=== PATIENT | female | born 1940 | race Caucasian/White ===

== ENCOUNTER 2023-11-04 08:10 | Inpatient (IN) ==
[2023-11-04] MEDS ORDERED: IOPAMIDOL 100 ML BOTTLE IV ONE (08:11)
[2023-11-04] MEDS: 0.9 % SODIUM CHLORIDE 500 ML IV ONE (08:36)
[2023-11-04 09:13] LABS: Basophils # (Auto) 0.03 K/mcL (0.00-0.30); Basophils % (Auto) 0.2 % (0.0-2.0); Eosinophils # (Auto) 0.17 K/mcL (0.00-0.70); Eosinophils % (Auto) 1.2 % (0.0-7.0); Hematocrit 40.9 % (34.1-44.9); Lymphocytes # (Auto) 3.14 K/mcL (1.50-4.80); Lymphocytes % (Auto) 21.6 % (15.5-49.0); Mean Cell Volume 95.1 fL (80.0-100.0); Mean Corpuscular HGB Conc 31.8 g/dL (31.0-36.0); Mean Platelet Volume 8.6 fL (8.8-12.5); Monocytes % (Auto) 6.2 % (1.0-12.0); Neutrophils % (Auto) 70.7 % (38.0-78.0); Platelet Count 417 K/mcL (140-440); Red Cell Distribution Width 13.2 % (11.5-14.5); WBC 14.6 K/mcL (4.5-11.0)
[2023-11-04 09:28] LABS: ALT/SGPT 8 U/L (<40); AST/SGOT 14 U/L (<32); Albumin 3.6 gm/dL (3.2-5.2); Albumin/Globulin Ratio 1.2 (1.0-2.3); Alkaline Phosphatase 111 U/L (39-117); Bilirubin,Total 0.6 mg/dL (0.1-1.0); Blood Urea Nitrogen 14 mg/dL (8-23); Calcium 8.7 mg/dL (8.6-10.4); Carbon Dioxide 24 mmol/L (22-30); Chloride 101 mmol/L (96-108); Glomerular Filtration Rate 69; Glucose 175 mg/dL (70-105)
[2023-11-04] MEDS: PANTOPRAZOLE 40 MG VIAL IV ONE (11:19)
[2023-11-04 12:00] LABS: Hematocrit 38.8 % (34.1-44.9); Hemoglobin 12.3 g/dL (11.2-15.7)
[2023-11-04 13:28] LABS: Basophils # (Auto) 0.03 K/mcL (0.00-0.30); Basophils % (Auto) 0.2 % (0.0-2.0); Eosinophils # (Auto) 0.21 K/mcL (0.00-0.70); Eosinophils % (Auto) 1.5 % (0.0-7.0); Hematocrit 39.8 % (34.1-44.9); Hemoglobin 12.7 g/dL (11.2-15.7); Lymphocytes # (Auto) 3.12 K/mcL (1.50-4.80); Lymphocytes % (Auto) 22.5 % (15.5-49.0); Mean Cell Volume 94.3 fL (80.0-100.0); Mean Corpuscular HGB Conc 31.9 g/dL (31.0-36.0); Mean Platelet Volume 8.3 fL (8.8-12.5); Monocytes # (Auto) 0.91 K/mcL (0.10-0.90); Monocytes % (Auto) 6.6 % (1.0-12.0); Neutrophils % (Auto) 69.1 % (38.0-78.0); Platelet Count 398 K/mcL (140-440); RBC 4.22 M/mcL (3.59-5.38); Red Cell Distribution Width 13.2 % (11.5-14.5); WBC 13.9 K/mcL (4.5-11.0)
[2023-11-04 14:05] LABS: Prothrombin Time 13.6 sec (11.9-14.5)
[2023-11-04] MEDS: PANTOPRAZOLE 80 MG in 0.9 % SODIUM CHLORIDE 100 ML IV SCH ×2 (18:03→18:49)
[2023-11-04] MEDS: 0.9 % SODIUM CHLORIDE 1,000 ML IV SCH (18:03)
[2023-11-04] MEDS: PEG 3350/NA SULF,BICARB,CL/KCL 4,000 ML ORAL.SOL PO ONE (18:06)
[2023-11-04 18:54] LABS: Hematocrit 39.9 % (34.1-44.9); Hemoglobin 13.4 g/dL (11.2-15.7)
[2023-11-04] MEDS: 0.9 % SODIUM CHLORIDE 250 ML IV SCH (19:53)
[2023-11-04] MEDS: PEG 3350/NA SULF,BICARB,CL/KCL 4,000 ML ORAL.SOL PT ONE (21:15)
[2023-11-05 01:00] LABS: Hematocrit 39.1 % (34.1-44.9); Hemoglobin 12.5 g/dL (11.2-15.7)
[2023-11-05 06:35] LABS: Hematocrit 38.2 % (34.1-44.9)
[2023-11-05 07:34] LABS: ALT/SGPT 5 U/L (<40); AST/SGOT 14 U/L (<32); Albumin 3.1 gm/dL (3.2-5.2); Albumin/Globulin Ratio 1.1 (1.0-2.3); Alkaline Phosphatase 98 U/L (39-117); Bilirubin,Direct < 0.2 mg/dL (0-0.3); Bilirubin,Total 0.7 mg/dL (0.1-1.0); Blood Urea Nitrogen 7 mg/dL (8-23); Calcium 8.1 mg/dL (8.6-10.4); Carbon Dioxide 25 mmol/L (22-30); Chloride 105 mmol/L (96-108); Globulin 2.7 gm/dL (2.2-3.7); Glomerular Filtration Rate 81; Glucose 72 mg/dL (70-105); Lactate Dehydrogenase 112 U/L (135-225); Phosphorous 2.6 mg/dL (2.5-4.5); Triglycerides 83 mg/dL (<150); Uric Acid 3.8 mg/dL (2.5-8.0)
[2023-11-05] MEDS: LISINOPRIL 5 MG TABLET PO SCH (08:38)
[2023-11-05] MEDS: FLUoxetine HCL 20 MG CAPSULE PO SCH (08:38)
[2023-11-05 12:46] LABS: Hemoglobin 11.9 g/dL (11.2-15.7)
[2023-11-05] MEDS: MAGNESIUM CITRATE 300 ML ORAL.SOL PO ONE ×2 (14:19→21:20)
[2023-11-05 18:30] LABS: Appearance,Urine Clear (Clear); Bacteria,Urine Many /hpf (0); Bilirubin,Urine Negative (Negative); Color,Urine Yellow; Culture Indicated,Urine Yes; Glucose,Urine (UA) Negative (Negative); Ketones,Urine 15 mg/dL (Negative); Leukocyte Esterase,Urine Moderate /uL (Negative); Nitrate,Urine Positive (Negative); Protein,Urine Trace mg/dL (Negative); Specific Gravity,Urine 1.025 (1.000-1.035); Urine Blood Moderate ery/mcL (Negative); Urine RBC 6 /hpf (0-3); Urine Squamous Epithelial Cell 1 /hpf (0-4); Urine WBC 25 /hpf (0-4); Urobilinogen,Urine Normal
[2023-11-05 18:57] LABS: Hemoglobin A1C 6.7 % Hgb (4.0-6.0)
[2023-11-05] MEDS: BISACODYL 5 MG TABLET PO ONE (23:00)
[2023-11-06 06:58] LABS: ALT/SGPT 6 U/L (<40); AST/SGOT 14 U/L (<32); Albumin 3.3 gm/dL (3.2-5.2); Albumin/Globulin Ratio 1.2 (1.0-2.3); Alkaline Phosphatase 106 U/L (39-117); Bilirubin,Direct 0.2 mg/dL (<0.3); Bilirubin,Total 0.8 mg/dL (0.1-1.0); Blood Urea Nitrogen 6 mg/dL (8-23); Calcium 8.2 mg/dL (8.6-10.4); Carbon Dioxide 22 mmol/L (22-30); Chloride 105 mmol/L (96-108); Globulin 2.8 gm/dL (2.2-3.7); Glomerular Filtration Rate 81; Glucose 81 mg/dL (70-105); Lactate Dehydrogenase 145 U/L (135-225); Phosphorous 2.5 mg/dL (2.5-4.5); Triglycerides 62 mg/dL (<150); Uric Acid 3.9 mg/dL (2.5-8.0)
[2023-11-06 07:26] LABS: Basophils # (Auto) 0.05 K/mcL (0.00-0.30); Basophils % (Auto) 0.4 % (0.0-2.0); Eosinophils # (Auto) 0.42 K/mcL (0.00-0.70); Eosinophils % (Auto) 3.5 % (0.0-7.0); Hematocrit 39.1 % (34.1-44.9); Lymphocytes % (Auto) 22.2 % (15.5-49.0); Mean Cell Volume 97.3 fL (80.0-100.0); Mean Corpuscular HGB Conc 30.7 g/dL (31.0-36.0); Mean Platelet Volume 8.7 fL (8.8-12.5); Monocytes # (Auto) 0.87 K/mcL (0.10-0.90); Monocytes % (Auto) 7.1 % (1.0-12.0); Neutrophils % (Auto) 66.7 % (38.0-78.0); Platelet Count 353 K/mcL (140-440); RBC 4.02 M/mcL (3.59-5.38); Red Cell Distribution Width 12.9 % (11.5-14.5); WBC 12.2 K/mcL (4.5-11.0)
[2023-11-06] MEDS ORDERED: LIDOCAINE 2% PF 5 ML VIAL ONE (08:38)
[2023-11-06] MEDS ORDERED: PROPOFOL 200 MG/20 ML VIAL IV ONE (08:38)
[2023-11-06] MEDS ORDERED: IPRATROPIUM/ALBUTEROL 3 ML AMPUL.NEB NEB PRN (09:00)
[2023-11-06] MEDS ORDERED: SCOPOLAMINE 1 PATCH PATCH TOPICAL PRN (09:00)
[2023-11-06] MEDS: HYDROCORTISONE 100 MG/60 ML BOTTLE PR SCH (20:47)
[2023-11-07] MEDS ORDERED: DEXTROSE 50% 50 ML VIAL IV PRN (07:37)
[2023-11-07] MEDS ORDERED: DEXTROSE 31 GM ORAL.SUSP PO PRN (07:37)
[2023-11-07] MEDS: PIPERACILLIN SODIUM/TAZOBACTAM 3.375 GM in 0.9 % SODIUM CHLORIDE 50 ML IV SCH (09:03)
[2023-11-07] MEDS: BUDESONIDE 3 MG CAP.XL.24H PO SCH (09:04)
[2023-11-07] MEDS: PIPERACILLIN SODIUM/TAZOBACTAM 3.375 GM in 0.9 % SODIUM CHLORIDE 100 ML IV SCH (11:11)
[2023-11-07] MEDS: INSULIN LISPRO 1 UNIT/0.01 ML UNIT SQ SCH (11:38)
[2023-11-08] MEDS: 0.9 % SODIUM CHLORIDE 1,000 ML IV SCH (14:17)
== END 2023-11-09 15:40 | DRG 386 ==
LOC: ED 08:10 → MEDSUR 15:08
PROVIDERS: ADMIT Family Medicine Adult Medicine; ATTEND Family Medicine Adult Medicine
PROC: COLONBX (2023-11-06 09:00)